=== PATIENT | female | born 1955 | race Caucasian/White ===

== ENCOUNTER 2017-10-09 13:02 | Outpatient (CLI) | payer OTHER ==
--- NOTE | 2017-10-13 10:54 | MMO ---
BILATERAL SCREENING MAMMOGRAM: Date: 10/09/17 HISTORY: Screening. COMPARISON: Mammograms from . TECHNIQUE: Bilateral screening CC and MLO mammograms, as well as bilateral implant displaced CT and MLO mammogra ms performed. This patient's mammogram was interpreted with the assistance of computer-aided detection. FINDINGS: There are bilateral breast implants. The breasts are extremely dense, which limits the sensitivity of mammography. Benign calcifications both breasts. There is an asymmetry right breast seen on the CC only, inner one -half, middle depth, of the breast parenchyma. This was not seen on the prior examination. IMPRESSION: BIRADS 0: Incomplete: Need Additional Imaging Evaluation and/or Prior Mammograms for Comparison Asymmetry right breast, CC only, medial one-half of breast measuring approximately 7.0 mm, middle de pth of the breast parenchyma. Spot compression and ultrasound, if deemed necessary, is recommended. The facility will notify patient of need for additional imaging services. POS: [facility]
== END 2017-10-09 13:03 | disposition home or self-care (01) ==
LOC: SCSMAMMO 13:02
DX: Z12.31 Encounter for screening mammogram for malignant neoplasm of breast (principal); N64.89 Other specified disorders of breast
CPT/HCPCS: 77067

== ENCOUNTER 2017-10-27 10:15 | Outpatient (CLI) | payer OTHER | END 2017-10-27 10:16 | disposition home or self-care (01) | LOC: BICMAMMO 10:15 | DX: N64.59 Other signs and symptoms in breast (principal) | CPT/HCPCS: G0279 ==

== ENCOUNTER 2018-04-13 13:06 | Outpatient (CLI) | payer OTHER ==
--- NOTE | 2018-04-13 15:35 | ULT ---
THYROID ULTRASOUND: 04/13/2018 HISTORY: Osteopenia. FINDINGS: The thyroid gland has a normal sonographic appearance without evidence of a thyroid nodule. The righ t lobe of the thyroid gland measures 4.6 cm x 1.4 cm x 1.3 cm with the left lobe measuring 4.2 cm x 1 .1 cm x 1.2 cm. The thyroid isthmus measures 0.3 cm in AP dimensions. IMPRESSION: Normal appearance and size of the thyroid gland. No thyroid nodule is seen. POS: [facility]
== END 2018-04-13 13:07 | disposition home or self-care (01) ==
LOC: BICULT 13:06
DX: M85.80 Other specified disorders of bone density and structure, unspecified site (principal); E04.2 Nontoxic multinodular goiter
CPT/HCPCS: 76536

== ENCOUNTER 2019-04-15 11:33 | Outpatient (CLI) | payer OTHER, SELFPAY ==
--- NOTE | 2019-04-15 12:16 | RAD ---
EXAM: Two views chest PROVIDED CLINICAL HISTORY: Immunosuppression therapy COMPARISON: 12/21/2015 FINDINGS: Cardiac and mediastinal silhouette appears within normal limits. Lungs appear free of significant opa city. No pleural fluid or pneumothorax apparent. IMPRESSION: No evidence for an acute cardiopulmonary process.
== END 2019-04-15 11:34 | disposition home or self-care (01) ==
LOC: SCSRAD 11:33
DX: K50.10 Crohn's disease of large intestine without complications (principal); R21 Rash and other nonspecific skin eruption; Z92.25 Personal history of immunosuppression therapy
CPT/HCPCS: 71046